=== PATIENT | male | born 1960 | race Caucasian/White ===

== ENCOUNTER → 2018-10-09 | Outpatient (CLI) | payer OTHER ==
[~2018-10-09] MED LIST: ASPIRIN EC81 M1 PO; BYSTOLIC 5 MG5 M1 PO; BYSTOLIC2.5 MG PO; CARVEDILOL3.125 MG PO; COLACE100 MG PO; DIOVAN 80 MG TA80 M1 PO; FLEXERIL PO; LISINOPRIL5 MG PO; NORCO 10-325 T1 EACH PO
== END ==
LOC: CAT 12:32
DX: Z13.6 Encounter for screening for cardiovascular disorders (principal); E78.00 Pure hypercholesterolemia, unspecified; I25.10 Atherosclerotic heart disease of native coronary artery without angina pectoris

== ENCOUNTER → 2021-04-05 | Outpatient (CLI) | payer BC | LOC: SJCVCIMAG 09:36 | PROVIDERS: ATTEND Internal Medicine Cardiovascular Disease | DX: I08.8 Other rheumatic multiple valve diseases (principal); I42.9 Cardiomyopathy, unspecified ==